=== PATIENT | male | born 1980 | race Caucasian/White ===

== ENCOUNTER 2018-11-23 12:21 | Emergency (ER) ==
[2018-11-23 12:38] VITALS: BP 230/160; TEMP 98.5; BMI 32.0
[2018-11-23] MEDS ORDERED: CARDENE-NACL 20 MG/200 ML SOLN 20 MG in PREMIX 200ML 0.86% SODIUM CHLORIDE 1 BAG IV SCH (13:00)
[2018-11-23] MEDS ORDERED: CARDENE-NACL 20 MG/200 ML SOLN 200 ML IV ONE (13:14)
--- NOTE | 2018-11-23 13:51 | DI ---
EXAM: Chest one view HISTORY: Cough, hypertensive emergency COMPARISON: None TECHNIQUE: Single view of the chest was performed FINDINGS: The lungs are clear. There is no pleural effusion or pneumothorax. The heart is enlarged in size. The mediastinal contour is normal. There are no acute abnormalities of the bones. IMPRESSION: Cardiomegaly.No acute cardiopulmonary process.
--- NOTE | 2018-11-23 15:24 | ED.PDOC ---
General ED Provider: Dr. ANA BENZ Chief Complaint: Hypertension Stated Complaint: hypertension Time Seen by Physician: 12:30 (seen with nursing staff ) Mode of Arrival: Walk-In Information Source: Patient Exam Limitations: No limitations Referred to ED by: Other (b/p on arrival 230/160) Nursing and Triage Documentation Reviewed and Agree: Yes Does patient meet sepsis criteria?: Yes If yes, has appropriate treatment been initiated?: No System Inflammatory Response Syndrome: Not Applicable (has been off meds x 2 months ) Sepsis Protocol: For patient's 13 years and over: Temp is 96.8 and below OR 101 and greater Pulse >90 BPM Resp >20/minute Acutely Altered Mental Status Are patient's symptoms suggestive of a new infection, such as: -Pneumonia -Skin, Soft Tissue -Endocarditis -UTI -Bone, Joint Infection -Implantable Device -Acute Abdominal Infection -Wound Infection -Meningitis -Blood Stream Catheter Infection -Unknown Cardiovascular Complaint Exam - Hypertension Complaint/Exam Onset/Duration: today was a work physical his blood pressure alarmed the people there Symptoms Are: Still present Timing: Constant Reported B/P Prior to Arrival: 230/160 Aggravating: Reports: None Alleviating: Reports: None Associated Signs and Symptoms: Reports: Chest pain. Denies: Vision changes, Anxiety, Recent stress, Headache, Numbness, Tingling, Weakness, Dizziness, Short of air, Swelling Related History: Reports: Current Gerard Inhibitors (off meds x 2 months ), Other ( clonidine off x 2 months ) Cardiac Risk Factors: Reports: Hypertension Recent Change in Medications: Yes (off meds ) A/V [place]: No Papilledema Present: No JVD Present: No Carotid Bruit Present: No Differential Diagnoses: Hypertension Quality Indicator For Non-Traumatic Chest Pain/Syncope: EKG Performed Review of Systems - Review Of Systems Constitutional: Reports: No symptoms Eyes: Reports: No symptoms Ears, Nose, Mouth, Throat: Reports: No symptoms Respiratory: Reports: No symptoms Cardiac: Reports: Chest pain GI: Reports: No symptoms : Reports: No symptoms Musculoskeletal: Reports: No symptoms Skin: Reports: No symptoms Neurological: Reports: No symptoms Endocrine: Reports: No symptoms Hematologic/Lymphatic: Reports: No symptoms All Other Systems: Reviewed and Negative Past Medical History - Past Medical History Previously Healthy: Yes Endocrine: Reports: None Cardiovascular: Reports: Hypertension Respiratory: Reports: None Hematological: Reports: None Gastrointestinal: Reports: None Genitourinary: Reports: None Neuro/Psych: Reports: None Musculoskeletal: Reports: None Cancer: Reports: None - Surgical History General Surgical History: Reports: None - Family History Family History: Reports: None - Social History Smoking Status: Current every day smoker, Heavy tobacco smoker Hx Substance Use: No Alcohol Screening: Occasionally Physical Exam - Physical Exam Appearance: Well-appearing, No pain distress, Well-nourished Eyes: RUDDY, EOMI, Conjunctiva clear ENT: Ears normal, Nose normal, Oropharynx normal Respiratory: Airway patent, Breath sounds clear, Breath sounds equal, Respirations nonlabored Cardiovascular: RRR, Pulses normal, No rub, No murmur GI/: Soft, Nontender, No masses, Bowel sounds normal, No Organomegaly Musculoskeletal: Normal strength, ROM intact, No edema, No calf tenderness Skin: Warm, Dry, Normal color Neurological: Sensation intact, Motor intact, Reflexes intact, Cranial nerves intact, Alert, Oriented Psychiatric: Affect appropriate, Mood appropriate Interpretation - [employer] In[employer] Rate: Normal Rhythm: Sinus Ectopy: None - EKG Interpretation Rate: Normal Rhythm: Sinus Ectopy: None [place]: NL ST Segment: Normal Physician Notification - Case Discussed Physician Notified: mike Time of Notification: 15:34 Critical Care Note - Critical Care Note Total Time (mins): 120 Course - Course Hematology/Chemistry: 11/23/18 12:45 11/23/18 12:45 Orders, Labs, Meds: Lab Review 11/23/18 11/23/18 11/23/18 12:45 12:45 12:45 WBC 8.45 RBC 4.50 L Hgb 13.3 L Hct 38.6 L MCV 85.8 MCH 29.6 MCHC 34.5 RDW Coeff of [place] 12.3 Plt Count 173 Immature Gran % (Auto) 0.2 Neut % (Auto) 55.6 Lymph % (Auto) 33.5 [place] % (Auto) 7.1 Eos % (Auto) 2.8 Baso % (Auto) 0.8 Immature Gran # (Auto) 0.0 Neut # (Auto) 4.7 Lymph # (Auto) 2.8 [place] # (Auto) 0.6 Eos # (Auto) 0.2 Baso # (Auto) 0.1 Sodium 138.6 Potassium 3.59 Chloride 102.3 Carbon Dioxide 27.0 Anion Gap 12.89 BUN 18.4 Creatinine 1.32 H Estimated GFR (MDRD) 60.00 BUN/Creatinine Ratio 13.93 Glucose 94.9 Calcium 8.88 Total Bilirubin 0.50 AST 22.3 ALT 17.6 Alkaline Phosphatase 96.6 Total Creatine Kinase 51.9 L Troponin I 0.028 Total Protein 7.07 Albumin 4.65 Globulin 2.42 Albumin/Globulin Ratio 1.92 TSH Free T4 1.14 Urine Color Urine Clarity Urine pH Ur Specific [place] Urine Protein Urine Glucose (UA) Urine Ketones Urine Blood Urine Nitrite Urine Bilirubin Urine Urobilinogen Ur Leukocyte Esterase 11/23/18 11/23/18 12:45 14:35 WBC RBC Hgb Hct MCV MCH MCHC RDW Coeff of [place] Plt Count Immature Gran % (Auto) Neut % (Auto) Lymph % (Auto) [place] % (Auto) Eos % (Auto) Baso % (Auto) Immature Gran # (Auto) Neut # (Auto) Lymph # (Auto) [place] # (Auto) Eos # (Auto) Baso # (Auto) Sodium Potassium Chloride Carbon Dioxide Anion Gap BUN Creatinine Estimated GFR (MDRD) BUN/Creatinine Ratio Glucose Calcium Total Bilirubin AST ALT Alkaline Phosphatase Total Creatine Kinase Troponin I Total Protein Albumin Globulin Albumin/Globulin Ratio TSH 0.620 Free T4 Urine Color Yellow Urine Clarity Clear Urine pH 5.5 Ur Specific [place] >=1.030 Urine Protein Negative Urine Glucose (UA) Negative Urine Ketones Trace Urine Blood Negative Urine Nitrite Negative Urine Bilirubin Negative Urine Urobilinogen 0.2 Ur Leukocyte Esterase Negative Orders Category Date Time Status EKG-(ED ONLY) Stat CARDIO 11/23/18 12:40 Completed CBC W/ AUTO DIFF Stat LAB 11/23/18 12:45 Completed COMPREHENSIVE METABOLIC PANEL Stat LAB 11/23/18 12:45 Completed CREATINE KINASE Stat LAB 11/23/18 12:45 Completed FREE T4 (FREE THYROXINE) Stat LAB 11/23/18 12:45 Completed THYROID STIMULATING HORMONE Stat LAB 11/23/18 12:45 Completed TROPONIN I Stat LAB 11/23/18 12:45 Completed URINALYSIS C & S IF INDICATED Stat LAB 11/23/18 14:35 Completed 0.9 % Sodium Chloride [Premix 200Ml 0.86% Sodium MEDS 11/23/18 13:00 Active Chloride] 1 bag Nicardipine in NaCl, Iso-Osm [Cardene-NaCl 20 mg/200 ml Soln] 20 mg IV 5 mg/hr Nicardipine in NaCl, Iso-Osm [Cardene-NaCl 20 mg/200 ml MEDS 11/23/18 13:14 Discontinued Soln] 200 ml IV .STK-MED CHEST, 1V AP ONLY Stat RADS 11/23/18 12:39 Completed Medications Generic Name Dose Route Start Last Admin Trade Name Freq PRN Reason Stop Dose Admin Nicardipine/Sodium Chloride 20 200 mls @ 50 mls/hr 11/23/18 13:00 11/23/18 13 :36 mg/ Sodium Chloride IV 5 mg/hr .Q4H ALIX 50 mls/hr Administration Protocol 5 MG/HR Vital Signs: Temp Pulse Resp BP Pulse Ox 11/23/18 12:26 98.5 F 71 18 230/160 H 96 URBAN Risk Score URBAN Risk Score: Risk Score Odds of by 30D 0 0.1 (0.1-0.2) 1 0.3 (0.2-0.3) 2 0.4 (0.3-0.5) 3 0.7 (0.6-0.9) 4 1.2 (1.0-1.5) 5 2.2 (1.9-2.6) 6 3.0 (2.5-3.6) 7 4.8 (3.8-6.1) Departure - Departure Time of Disposition: 15:34 Disposition: TSF SHORT-TRM HOSP Discharge Problem: Hypertensive urgency Instructions: Hypertensive Crisis (ED) Condition: Good Pt referred to PMD for follow-up: Yes IPMP verified?: No Allergies/Adverse Reactions: Allergies No Known Allergies Allergy (Unverified 11/23/18 12:32) Home Medications: Ambulatory Orders Clonidine HCl 0.2 mg PO DAILY PRN 11/23/18 Hydrochlorothiazide 25 mg PO DAILY 11/23/18 Lisinopril [Zestril] 40 mg PO BID 11/23/18
== END 2018-11-23 16:15 | disposition short-term general hospital (02) ==
LOC: ED 12:21
DX: I16.0 Hypertensive urgency (principal); R07.9 Chest pain, unspecified; Z91.14 Patient's other noncompliance with medication regimen; F17.210 Nicotine dependence, cigarettes, uncomplicated
CPT/HCPCS: 36415; 80053; 81001; 82550; 84439; 84443; 84484; 85025; 93005; 93010; 96365; 96366; 99285

== ENCOUNTER 2018-11-23 16:14 | Outpatient (CLI) ==
[2018-11-23 12:38] VITALS: BMI 32.0
== END 2018-11-23 16:39 | disposition short-term general hospital (02) ==
LOC: AMBL 16:14
PROVIDERS: ATTEND Internal Medicine
DX: I10 Essential (primary) hypertension (principal); Z91.14 Patient's other noncompliance with medication regimen